=== PATIENT | female | born 1940 | race Caucasian/White ===

== ENCOUNTER 2021-11-18 13:18 | Emergency (ER) | payer MEDICARE, BC, SELFPAY ==
[2021-11-18] VITALS (19 sets, daily range): BP systolic 148–192; BP diastolic 70–129; PULSE 84–94; RESP 18; TEMP 37.1; O2SAT 92–96
--- NOTE | 2021-11-18 14:20 | CRLHL7_ITS ---
For Patients: As a result of the Cures Act, medical imaging exams and procedure reports are released immediately into your electronic medical record. You may view this report before your referring provider. If you have questions, please contact your health care provider. Indication: Right-sided swelling Technique: Sonography of the indicated area of swelling which is the right aspect of the neck according to the patient Comparison: None Findings: There is a mild edema pattern in the subcutaneous fatty tissues of uncertain etiology and significance. No mass, collection or adenopathy. Impression: Mild edema pattern in the subcutaneous fatty tissues of uncertain etiology and significance. No mass, collection or adenopathy by sonographic criteria. Dictated by Driss Lam MD @ 11/18/2021 3:43:10 PM (Electronically Signed)
--- NOTE | 2021-11-18 14:25 | ED.GENADULT ---
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 The patient reports the swelling started 1 day prior to presentation. The patient denies any new exposure. However, patient states that she did have mushroom orzo, which was new to her. She has had mushrooms prior without history of allergy. She has no other known allergies. She denies mouth or tongue swelling. She denies shortness of breath. She denies difficulty swallowing or speaking. The patient's home health nurse felt she needed to be evaluated secondary to persistent swelling today. The patient reports she has had significant improvement in symptoms since onset. She denies pain associated with swelling. She denies any changes to symptoms with sour, sweet, or other food products. They have sought no treatment prior to arrival. No previous similar symptoms. Related Data Home Medications Medication Instructions Recorded Confirmed losartan 100 mg tablet 100 mg PO DAILY 11/18/21 11/18/21 metformin .ROUTE 11/18/21 Previous Rx's Medication Instructions Recorded amoxicillin 875 mg-potassium 1 tab PO BID #10 tabs 11/18/21 clavulanate 125 mg tablet Allergies Allergy/AdvReac Type Severity Reaction Status Date / Time No Known Drug Allergies Allergy Verified 11/18/21 13:28 Review of Systems Const: Denies: fever, chills, fatigue or malaise ENMT: Reports: other (facial/jaw swelling on right); Denies: throat pain, mouth pain, swelling of lips/tongue, ear pain, ear discharge, nasal discharge or nasal congestion Cardio: Denies: chest pain, palpitations, swelling of feet/ankles or shortness of breath with exertion Resp: Denies: shortness of breath or cough GI: Denies: abdominal pain, nausea, vomiting, diarrhea or constipation Neuro: Denies: difficulty communicating thoughts Endo: Denies: fatigue PFSH PFSH Social History Smoking Status: Never smoker How often do you have a drink containing alcohol: never AUDIT-C Alcohol total score: 0 Non-prescribed substance use: denies use service: No Exam Const: Vital Signs, click to edit/add: Vital Signs - 24 hr 11/18/21 13:22 11/18/21 13:31 11/18/21 13:31 Temperature 98.7 F Pulse Rate 84 Pulse Rate [Right Pulse Oximeter] 87 85 Respiratory Rate 18 18 Blood Pressure Blood Pressure [Ri ght Upper Arm] 192/95 H 192/95 H Pulse Oximetry 96 96 95 Oxygen Delivery Me thod Room Air 11/18/21 13:35 11/18/21 13:36 11/18/21 13:46 Temperature Pulse Rate 84 85 85 Pulse Rate [Right Pulse Oximeter] Respiratory Rate Blood Pressure 158/78 H 162/93 H Blood Pressure [Ri ght Upper Arm] Pulse Oximetry 95 92 94 Oxygen Delivery Me thod 11/18/21 13:47 11/18/21 14:00 11/18/21 14:01 Temperature Pulse Rate 85 87 87 Pulse Rate [Right Pulse Oximeter] Respiratory Rate Blood Pressure 148/83 H Blood Pressure [Ri ght Upper Arm] Pulse Oximetry 93 94 93 Oxygen Delivery Me thod Documenting provider has reviewed patient's vital signs: yes Common normals: no apparent distress, oriented x3, no limitations, alert and well nourished General appearance: cooperative, comfortable, well developed and disheveled (chronically ill appearing); not in distress Orientation/consciousness: Yes awake, Yes oriented to person and Yes oriented to place HENMT: Common normals: normocephalic, head/scalp atraumatic, hearing grossly normal bilaterally, external nose normal and moist oral mucous membranes; dentition not normal (poor dentition) Head and scalp: normocephalic and atraumatic Face and sinus: normal facial exam, sinuses nontender and TMJ findings nontender: bilateral and other: right (swelling and induration noted along TMJ extending into the submandibular gland); face not symmetric Nose: external nose normal Mouth: lip abnormal (vascular malformation 'present since ', lower lip mid) and TMJ findings TMJ Findings: nontender: bilateral and other: right (swelling and induration noted along TMJ extending into the submandibular gland) Teeth and gingiva: poor dentition Eye: Common normals: EOMs intact bilaterally General eye: normal appearance of both eyes Neck & C-Spine: Common normals: full ROM, no lymphadenopathy and supple Resp: Common normals: normal respiratory effort, no retractions, no use of accessory muscles and clear to auscultation bilaterally Effort & inspection: able to speak in complete sentences Auscultation: clear to auscultation bilaterally Cardio: Common normals: regular rate, regular rhythm, S1 normal heart sound and S2 normal heart sound Rate: regular rate Rhythm: regular rhythm Heart sounds: S1 normal and S2 normal Back & Pelvis: Thoracic spine/upper back: other soft tissue findings Other thoracic soft tissue findings laterality: right Right other thoracic soft tissue findings details: erythema (livido reticularis) and other (plaque noted along the right thoracic to lumbar, pruritic without blister formation or current skin breakdown; poor hygiene noted) Extremity: Common normals: normal to inspection, full ROM and no clubbing, cyanosis or edema Neuro: Common normals: oriented x3, moves all extremities, no focal motor deficits and no sensory deficits noted Sensorium/orientation: awake, alert, oriented to person and oriented to place Gait (neuro): normal gait Motor exam: no movement abnormalities noted Psych: Common normals: mental status grossly normal, thought process normal and activity/motor behavior normal Appearance: grossly normal Thought process: normal thought process Thought content: normal thought content Attention/concentration: attention grossly intact Memory/cognition: memory grossly intact Insight: insight good Judgement: judgment good Skin: Common normals: no rashes or lesions noted General skin exam: no rashes or lesions noted Course Course Hospital Course: Ivania presented to the ED for concerns of unilateral facial swelling at the request of her home health nurse. She has no significant PMH and no known exposure. She had labs and imaging as noted. She was given coverage for parotitis empirically, and she was advised of negative lab and imaging findings. Patient will be continued on empiric oral therapy and encouraged to follow with her primary physician, as clinically indicated. Reevaluation(s) Reevaluation #1: Patient reports no significant change in symptoms while in ED but noted improvement from initial onset. Patient's vital signs have remained stable. The results were discussed, and the patient verbalized understanding. Reasons for follow-up or return were discussed. Time: 15:08 Vital Signs Vital signs: Initial Vital Signs Pulse Rate 87 11/18/21 13:22 Respiratory Rate 18 11/18/21 13:22 Blood Pressure 192/95 H 11/18/21 13:22 Blood Pressure Mean 127 11/18/21 13:22 Blood Pressure Position Sitting 11/18/21 13:22 Pulse Oximetry 96 11/18/21 13:22 Oxygen Delivery Method 11/18/21 13:22 Vital Signs Pulse Rate 87 11/18/21 13:22 Respiratory Rate 18 11/18/21 13:22 Blood Pressure 192/95 H 11/18/21 13:22 Pulse Oximetry 96 11/18/21 13:22 Oxygen Delivery Method 11/18/21 13:22 Temperature 98.7 F 11/18/21 13:31 Pulse Rate 87 11/18/21 14:01 Respiratory Rate 18 11/18/21 13:31 Blood Pressure 148/83 H 11/18/21 14:01 Pulse Oximetry 93 11/18/21 14:01 Oxygen Delivery Method 11/18/21 13:22 Medical Decision Making MDM Narrative Medical decision making narrative: Differential diagnoses include but are not limited to viral or bacterial infection, dermatitis, dental infection, allergic reaction, or occlusive stone. Lab Data Lab results reviewed: Yes I reviewed the patient's lab results Labs: Lab Results 11/18/21 11/18/21 Range/Units 14:19 14:19 WBC 9.09 (4.50-11.00) K/uL RBC 4.25 (4.00-5.20) m/uL Hgb 10.4 L (12.0-16.0) gm/dL Hct 34.5 (33.0-51.0) % MCV 81 (80-100) fL MCH 25 L (26-34) pg MCHC 30 L (32-36) gm/dL RDW Coeff of Tutu 15.7 H (11.5-15.5) % Plt Count 250 (140-440) K/uL Neut % (Auto) 78.9 H (42.0-72.0) % Lymph % (Auto) 12.4 L (20-44) % [place] % (Auto) 5.4 (0.0-11.0) % Eos % (Auto) 2.8 (0.0-7.0) % Baso % (Auto) 0.3 (0.0-3.0) % Neut # (Auto) 7.20 H (1.7-7.0) K/uL Lymph # (Auto) 1.10 (0.90-2.90) K/uL [place] # (Auto) 0.50 (0.00-0.90) K/UL Eos # (Auto) 0.25 (0.00-0.50) K/uL Baso # (Auto) 0.03 (0.00-0.30) K/uL Abs Immat Gran (auto) 0.02 (0.00-0.30) K/uL Sodium 140 (135-149) mmol/L Potassium 3.6 (3.6-5.1) mmol/L Chloride 103 (96-114) mmol/L Carbon Dioxide 27 (20-32) mmol/L BUN 15 (7-30) mg/dL Creatinine 0.8 (0.5-1.5) mg/dL Estimated Creat Clear 39.03 Estimated GFR 74 ml/min Glucose 125 H (60-115) mg/dL Calcium 8.6 (8.4-10.6) mg/dL C-Reactive Protein 0.8 (0.5-1.0) mg/dL Imaging Data US soft tissue face/neck: Attestation: I have reviewed the pertinent imaging results. Radiologist's impression: Impression: Mild edema pattern in the subcutaneous fatty tissues of uncertain etiology and significance. No mass, collection or adenopathy by sonographic criteria. Discharge Plan Discharge Clinical Impression: Acute parotitis Condition: Improved Instructions: Adenitis (ED) Additional Instructions: Thank you for choosing [facility]. We plan to treat with additional antibiotics. You should aggressively treat symptoms with: rest, increased fluids, and Ibuprofen and Tylenol as needed. You should eat and drink to ensure adequate intake with sour products to encourage saliva production. The patient is asked to return if developing respiratory or GI distress, inability to eat or drink, decreased urine output, or other new/worsening symptoms develop. Additional discussion regarding the course of the illness, as well as helpful treatments, including use of a vaporizer/humidifier, steamed bathroom, or cool outdoor air. Arrange follow up visit if worsening or no improvement in symptoms in 1-2 weeks. The patient is asked to return if develops warning signs including fever >100.4 not responsive to Tylenol/Ibuprofen, respiratory distress, lethargy, failure to hydrate with PO intake, or decreased urine output. Your care today was on an emergency basis and is not intended to be a substitute for on-going care with your primary physician. I recommend calling primary care for follow-up in the next 5-7 days for follow-up as needed and to review any labs, testing, or imaging you have had in the Emergency Department. If new or worsening symptoms develop or you have any concerns in the meantime, please call your primary care clinic or return to the ER for re-evaluation. Activity Level: Activity as Tolerated Activity Detail: Continue to encourage ambulation, transitioning exercises, and activity Discharge Diet: Diabetic and Heart Healthy (2 gm sodium, low fat) Prescriptions: New amoxicillin-pot clavulanate 875-125 mg tablet 1 tab PO BID Qty: 10 0RF No Action losartan 100 mg tablet 100 mg PO DAILY metformin .ROUTE Follow Up/Referrals: Marj Rojas MD [Primary Care Provider] - 11/25/21 (1wk for reevaluation) Stand Alone Forms: HandUp PBC Info Instructions
[2021-11-18 14:30] LABS: Basophils Absolute Auto 0.03 K/uL (0.00-0.30); Basophils Percent Auto 0.3 % (0.0-3.0); Eosinophils Absolute Auto 0.25 K/uL (0.00-0.50); Eosinophils Percent Auto 2.8 % (0.0-7.0); Hematocrit 34.5 % (33.0-51.0); Hemoglobin* 10.4 gm/dL (12.0-16.0); Immature Granulocytes Abs Auto 0.02 K/uL (0.00-0.30); Lymphocytes Percent Auto 12.4 % (20-44); Mean Corpuscular HGB Conc 30 gm/dL (32-36); Mean Corpuscular Hemoglobin 25 pg (26-34); Mean Corpuscular Volume 81 fL (80-100); Monocytes Percent Auto 5.4 % (0.0-11.0); Neutrophils Percent Auto 78.9 % (42.0-72.0); Platelet Count* 250 K/uL (140-440); RDW Coefficient of Variation % 15.7 % (11.5-15.5); Red Blood Count 4.25 m/uL (4.00-5.20); White Blood Count* 9.09 K/uL (4.50-11.00)
[2021-11-18 14:35] LABS: Slide Review Reflex No
[2021-11-18 14:37] LABS: Chloride* 103 mmol/L (96-114)
[2021-11-18 14:38] LABS: Potassium* 3.6 mmol/L (3.6-5.1); Sodium* 140 mmol/L (135-149)
[2021-11-18 14:40] LABS: Creatinine* 0.8 mg/dL (0.5-1.5); Est. Creatinine Clearance* 39.03; Estimated Glomerular Filt Rate 74 ml/min
[2021-11-18 14:41] LABS: Blood Urea Nitrogen* 15 mg/dL (7-30); Carbon Dioxide* 27 mmol/L (20-32); Glucose* 125 mg/dL (60-115)
[2021-11-18 14:42] LABS: Calcium* 8.6 mg/dL (8.4-10.6)
[2021-11-18 14:44] LABS: C Reactive Protein* 0.8 mg/dL (0.5-1.0)
[2021-11-18] MEDS: 0.9 % SODIUM CHLORIDE 500 ML 500 ML IV (15:07)
[2021-11-18] MEDS: cefTRIAXone 2 GM in 0.9 % SODIUM CHLORIDE Mini-bag 100 ML IVPB (15:35)
[2021-11-18] MEDS: metroNIDAZOLE 500 MG/100 ML PIGGYBACK IVPB (16:06)
[2021-11-18] MEDS: TRIAMCINOLONE ACETONIDE OINTMENT 0.1 % 1 APPLIC TOPICAL (16:15)
== END 2021-11-18 18:50 | disposition home or self-care (01) ==
PROVIDERS: Emergency Provider Family Medicine; PCP Family Medicine
DX: K11.21 Acute sialoadenitis (principal)
CPT/HCPCS: 36415; 76536; 80048; 85025; 86140; 96365; 96375; 99283; 99284; A9270; J0696; J7120; S0030

== ENCOUNTER 2021-11-18 18:44 | Outpatient (CLI) | payer MEDICARE, BC, SELFPAY | END 2021-11-18 18:45 | disposition home or self-care (01) | LOC: AMB 11-20 16:51 | PROVIDERS: PCP Family Medicine; Visit Provider Family Medicine | DX: Z74.01 Bed confinement status (principal) | CPT/HCPCS: A0425; A0428 ==